=== PATIENT | male | born 2000 | race Caucasian/White ===

== ENCOUNTER 2024-04-05 06:18 | Day surgery (SDC) | payer OTHER ==
[~2024-04-05] VITALS: Ht 190.5 cm; Wt 129.3 kg
[2024-04-05] MEDS ORDERED: fentaNYL citrate 0.05 MG/ML VIAL ONE (07:30)
[2024-04-05] MEDS: fentaNYL citrate 0.05 MG/ML VIAL IVP ONE (07:38)
[2024-04-05] MEDS: LIDOCAINE 2% 100 MG/5 ML UJET TP ONE (07:47)
== END 2024-04-05 08:38 | disposition home or self-care (01) ==
LOC: MDS 06:18 → MMU 06:18 → MDS 08:38
PROVIDERS: ATTEND Internal Medicine Gastroenterology
DX: K51.90 Ulcerative colitis, unspecified, without complications (principal); K64.8 Other hemorrhoids; Z79.899 Other long term (current) drug therapy; Z98.890 Other specified postprocedural states
CPT/HCPCS: 45380; 88305; J3010